=== PATIENT | female | born 1990 | race Caucasian/White ===

== ENCOUNTER 2016-10-05 12:17 | Day surgery (SDC) | payer OTHER ==
[~2016-10-05] VITALS: Ht 160 cm; Wt 55.0 kg
[~2016-10-05 12:17] MED LIST: 0.9% Sodium Chloride 1,000 ML IV PRN; ONDA4TAB9 PO; Sodium Chloride LOK Flush 10 mL Syringe IV PRN; fentaNYL-PF 50 mCg/mL 2 mL Inj IVPUSH PRN
[2016-10-05 13:30] VITALS: BP 128/85; PULSE 66; RESP 14; O2SAT 100
[2016-10-05 14:56] VITALS: BP 113/75; PULSE 72; RESP 14; O2SAT 100
--- NOTE | 2016-10-05 14:56 | PCM.ENDCOL ---
Colonoscopy Date of Service: Oct 05, 2016 Physician Soham Esparza MD Indication for Procedure Blood In the stools Post Procedure Dx & Findings: Hemorrhoids Procedure Colonoscopy Prep adequate Cecum 4 minutes Withdrawal 14 minutes PROCEDURE IN DETAIL: After unremarkable rectal examination Olympus video colonoscope was inserted patient's anal canal was advanced to cecum. Landmarks are identified including the ileocecal valve and appendiceal orifice. As withdrawn systematically. The mucosa of the cecum, ascending, transverse, descending, sigmoid, rectal mucosa lined with whitish, pink, smooth, glistening, normal-appearing mucosa, normal fine branching, underlying vascularity, normal haustra. The patient tolerated procedure and was transported to observation area. In the rectum retroflexion was done which showed mild hemorrhoids. Anal canal was inspected carefully and the way out hot hemorrhoids noted. Impression Hemorrhoids Recommendation Metamucil indefinitely If she sees recurrent bleeding after 4 weeks, please have her follow up to see me in clinic. Presedation Assessment Risks and Benefits Informed consent was obtained from the patient after all risks and benefits including but not limited to drug reaction, infection, pain, bleeding, perforation, as well as alternatives were discussed. Patient monitoring Continuous pulse oximetry, cardiac monitoring, blood pressure monitoring, IV access, and oxygen at 2L per nasal cannula. Periprocedural Fentanyl: Fentanyl 125mcg Incrementally Midazolam: Midazolam 6mg Incrementally Complications There were no periprocedural complications identified. Post Procedure Plan Post Procedure Recommendations 1. Restrict activities today. 2. Resume normal activities in the morning. 3. Resume medications. 4. Patient informed of normal post procedure side effects as bloating, drowsiness, blood streaking in the stool. 5. average risk CRCS. If colon polyps come back as: -Hyperplastic- can repeat colonoscopy in 10 years -Tubular adenoma- repeat colonoscopy in 5 years -Tubulovillous/villous adenoma- repeat colonoscopy in 3 years -If any dysplasia- return to clinic as soon as possible 6. Please don't hesitate to call me with any questions. Soham Esparza MD Oct 05, 2016 14:56
[2016-10-05 15:08] VITALS: BP 117/73; PULSE 65; RESP 12; O2SAT 99
[2016-10-05 15:10] VITALS: BP 127/79; PULSE 81; RESP 14; O2SAT 100
== END 2016-10-05 23:59 | disposition home or self-care (01) ==
LOC: END 12:17
PROVIDERS: ATTEND Internal Medicine
DX: K92.1 Melena (principal); K64.8 Other hemorrhoids
CPT/HCPCS: 45378; J2250; J7030

== ENCOUNTER 2016-10-29 20:16 | Emergency (ER) | payer OTHER ==
[~2016-10-29] VITALS: Ht 160 cm; Wt 59.1 kg
[2016-10-29 20:39] VITALS: BP 140/99; PULSE 80; RESP 16; O2SAT 100
--- NOTE | 2016-10-29 20:59 | ED.REPORT ---
HPI- Female Date of Service Oct 29, 2016 ED Provider: Dr. Kilo Lopez D.O. A healthy 26 year old female presents to the ED with suprapubic pain onset yesterday, worsening three hours ago. The patient also reports vaginal bleeding , vaginal discharge, and a headache. She recently started a new form of control. The patient is sexually active but has been with the same partner since her last chlamydia test in 11/2015. Nursing Notes Stated Complaint: CRAMPS, VOMITING, MIGRAINE Chief Complaint: Female Abdominal Pain Nursing Notes Reviewed: Yes Allergies: Coded Allergies: No Known Drug Allergies (Verified Allergy, Unknown, 10/02/16) General Time Seen by MD: 20:58 Chief Complaint Abdominal pain... (Suprapubic) Hx Obtained From: Patient Arrived By: Walk-in Sudden in Onset?: No Onset Occurred: Yesterday Symptom Duration: Since onset Location: : Suprapubic Quality: Painful Severity: Current: Moderate Severity: Maximum: Moderate Associated with: Denies: Fever Sexual History / Control: Reports Pt is sexually active Pertinent Negative: Relieved by nothing Recent Healthcare: No recent doctor visit Past Medical History Past Medical History None reported Past Surgical History Colonoscopy Smoking History Unknown if Ever Smoker Ambulatory Status Independent Review of Systems Review of Systems Note: + Vaginal bleeding Constitutional: Denies: Fever GI: Reports: Abdominal pain (Suprapubic), Denies: Vomiting Female: Reports: Vaginal discharge Neurologic: Reports: Headache Complete sys rev & neg: except as marked. Respiratory: Denies: Non-productive cough, Shortness of breath Physical Exam Initial Vital Signs Vital Signs (First) Date Time Temp Pulse Resp B/P Pulse Ox O2 Delivery O2 Flow Rate FiO2 10/29/16 20:39 36.8 80 16 140/99 100 Room Air Initial VS: Reviewed Head / Eyes: Atraumatic, Normocephalic ENT: Conjunctiva normal, No scleral icterus Neck: Supple, Full range of motion Respiratory: Breath sounds normal, Clear to auscultation, No respiratory distress Cardiovascular: Regular rate & rhythm, Heart sounds normal Skin: Warm, Dry, No cyanosis Neurologic: Alert, Oriented, Nonfocal Psychiatric: Mood/affect normal, Behavior normal, Normal thought content Female Genitourinary: Technical Writer present, Atraumatic, No adnexal mass, No adnexal tenderness Pelvic Exam: Positive: Cervical motion tend... (Moderate), Os is open (Blood clot at os opening) General/Constitutional: Awake, Alert Abdomen: Soft Tenderness/Guarding/Rebound: Positive: Tender suprapubic Interpretation & Diagnostics Lab Results Interpretation Result Diagram: 10/29/16 2140 Test 10/29/16 21:40 10/29/16 23:00 White Blood Count 10.1th/mm3 (3.8-10.1) Red Blood Count 4.71mil/mm3 (3.90-5.20) Hemoglobin 13.6g/dL (12.0-15.6) Hematocrit 38.9% (35.0-46.0) Mean Corpuscular Volume 82.6fL (81-100) Mean Corpuscular Hemoglobin 28.9pg (27.0-35.0) Mean Corpuscular Hemoglobin Concent 35.0% (32.0-37.0) Red Cell Distribution Width 11.9% (12.3-15.4) Platelet Count 372bil/L (150-400) Neutrophils (%) (Auto) 58.5% (40-74) Lymphocytes (%) (Auto) 33.3% (14-46) Monocytes (%) (Auto) 5.0% (4-12) Eosinophils (%) (Auto) 2.5% (0-5) Basophils (%) (Auto) 0.5% (0-3) HCG Beta Subunit 0.500mIU/mL Urine Color Straw (YELLOW) Urine Appearance Clear (CLEAR,HAZY) Urine pH 6.5 (5.0-8.0) Urine Specific [place] <1.005 (1.003-1.035) Urine Protein Negativemg/dL (NEG,TRACE) Urine Glucose (UA) Negativemg/dL (NEGATIVE) Urine Ketones Negativemg/dL (NEGATIVE) Urine Occult Blood Large (NEGATIVE) Urine Nitrite Negative (NEGATIVE) Urine Bilirubin Negative (NEGATIVE) Urine Urobilinogen Normalmg/dL (NORMAL) Urine Leukocyte Esterase Negative (NEGATIVE) Urine RBC 0-2/hpf (0-2) Urine WBC 0-5/hpf (0-5) Urine Epithelial Cells Moderate/hpf (NONE-MOD) Urine Crystals None seen (NONE SEEN) Urine Bacteria Few/hpf (NONE-FEW) Urine Hyaline Casts None/lpf (NONE) Urine Granular Casts None seen (NONE SEEN) Urine Waxy Casts None seen (NONE SEEN) Urine Red Blood Cell Casts None seen (NONE SEEN) Urine White Blood Cell Casts None seen (NONE SEEN) Urine Mucus None seen (None Seen) Urine Trichomonas None seen (NONE SEEN) Urine Yeast None (NONE SEEN) Urinalysis Comment None Urine Culture Reflexed Not indicated Re-Eval/Medical Decision Med Decision/Clinical Course There was clots at the cervical os. No significant cervical motion tenderness. No adnexal pain or tenderness. There was some sanguinous/serous discharge as well. No signs of ovarian torsion or an ovarian mass. Her pain is all in her uterus. Her uterus did not feel enlarged but was mildly tender. GC chlamydia swabs and sent. She has been treated with IM ceftriaxone. She will be on a 72 second. I believe however that her pain is related to the heavy menstrual bleeding secondary to hormones she has been on for 2 weeks. We will treat her symptomatically. She will follow up with a GC and chlamydia swab testing. If that is negative then she can stop the antibiotics. Routine opiate warnings were given. Short course of opiates prescribed for severe pain. Ectopic and ovarian torsion and PID all felt to be highly unlikely based on history and physical examination. Re-Evaluation/Progress : Time of Eval: 22:19 Patient Status: Condition improved Re-Evaluation/Progress Note: Pelvic exam performed. Discussed with patient diagnosis and plan for discharge. Follow-up and return to the ER instructions given. Patient agrees with plan for care and all questions were addressed. Counseled Regarding: Diagnosis, Need for follow-up, When/why to return to ED Discharge & Departure Shift Change Sign-Out Response to Therapy: Improved Impression: Primary Impression: Vaginal bleeding Additional Impression: Pelvic pain Disposition: Home Discharge Condition All VS Reviewed: Yes Condition: Stable Patient Instructions: Acute Abdominal Pain (ED), Dysfunctional Uterine Bleeding (ED) Additional Instructions: We have sent out urine testing for pelvic infection and this should be resulted by Wednesday. I suspect the cramping and bleeding is related to the control pills. Take Motrin 600 mg every 8 hours for moderate pain. Take 1-2 Percocet every 6 hours as needed for more severe pain. If the pain worsens or if it seems like it is in your ovaries then come back to the emergency department. Call your doctor tomorrow set up a follow-up. Take doxycycline twice daily for 7 days. This for possible pelvic infection. Do not drive or drink alcohol or consume acetaminophen while taking the Percocet. Call tomorrow set up a follow-up with your primary care physician for next week. Do not hesitate to return if any problems or any worsening symptoms. Referrals: Cecy Gamble MD (PCP) Scribe Attestation Portions of this note were transcribed by Vannesa Perez. I, Dr. Lopez, personally performed the history, physical exam, and medical decision-making; I reviewed and confirmed the accuracy of the information in the transcribed note. Signed by: Rachael Moreland, 10/29/2016, 23:55 copies to: Cecy Gamble MD, Todd P DO Oct 29, 2016 20:59 VANNESA PEREZ Oct 29, 2016 21:11
[2016-10-29] MEDS ORDERED: _oxyCODONE/APAP 5-325 mg Tablet PO PRN (21:10)
[2016-10-29 21:57] LABS: BASOPHILS % (AUTO) 0.5 % (0-3); EOSINOPHILS % (AUTO) 2.5 % (0-5); Mean Corpuscular Hemoglobin 28.9 pg (27.0-35.0); Mean Corpuscular Volume 82.6 fL (81-100); NEUTROPHILS % (AUTO) 58.5 % (40-74); Platelet Count 372 bil/L (150-400)
[2016-10-29] MEDS ORDERED: cefTRIAXone Inj 250 MG, Lidocaine PF 1% Inj 0.9 ML in Syringe 1 EACH IM ONE (22:25)
[2016-10-29 23:27] LABS: APPEARANCE,URINE CLEAR (CLEAR,HAZY); COLOR,URINE STRAW (YELLOW); OCCULT BLOOD,URINE LARGE (NEGATIVE); PH,URINE 6.5 (5.0-8.0); UROBILINOGEN,URINE NORMAL (NORMAL)
[2016-10-30 00:09] VITALS: BP 133/85; PULSE 63; RESP 16; O2SAT 98
== END 2016-10-30 00:07 | disposition home or self-care (01) ==
LOC: SED 20:16
DX: N93.9 Abnormal uterine and vaginal bleeding, unspecified (principal); R10.2 Pelvic and perineal pain; N89.8 Other specified noninflammatory disorders of vagina; R51 Headache
CPT/HCPCS: 36415; 81000; 84702; 85025; 87491; 87591; 96372; 96374; 99284; J0696